=== PATIENT | female | born 1980 | race Native Hawaiian/Other Pacific Islander ===

== ENCOUNTER 2018-11-09 22:04 | Outpatient (CLI) | payer OTHER | END 2018-11-09 22:18 | disposition short-term general hospital (02) | LOC: AMB 22:04 | DX: M25.511 Pain in right shoulder (principal); V89.2XXA Person injured in unspecified motor-vehicle accident, traffic, initial encounter; Y92.413 State road as the place of occurrence of the external cause | CPT/HCPCS: A0425; A0429 ==

== ENCOUNTER 2018-11-09 22:24 | Emergency (ER) | payer OTHER ==
[~2018-11-09] VITALS: Ht 162.6 cm; Wt 77.1 kg
[2018-11-09 22:24] VITALS: TEMP 99.9
[2018-11-10 01:57] VITALS: BP 160/110
== END 2018-11-10 02:00 | disposition home or self-care (01) ==
LOC: ED 22:24
DX: S40.011A Contusion of right shoulder, initial encounter (principal); S00.511A Abrasion of lip, initial encounter; V49.50XA Passenger injured in collision with unspecified motor vehicles in traffic accident, initial encounter
CPT/HCPCS: 99283